=== PATIENT | male | born 1955 | race Caucasian/White ===

== ENCOUNTER → 2017-07-10 | Outpatient (CLI) | payer OTHER | LOC: SLP 20:21 | PROVIDERS: ATTEND Internal Medicine Cardiovascular Disease | DX: G47.30 Sleep apnea, unspecified (principal); I10 Essential (primary) hypertension | CPT/HCPCS: 95810 ==

== ENCOUNTER → 2017-09-10 | Outpatient (CLI) | payer OTHER | END | disposition home or self-care (01) | LOC: SLP 20:32 | PROVIDERS: ATTEND Internal Medicine Cardiovascular Disease | DX: G47.33 Obstructive sleep apnea (adult) (pediatric) (principal); I10 Essential (primary) hypertension; E66.9 Obesity, unspecified; F32.9 Major depressive disorder, single episode, unspecified | CPT/HCPCS: 95811 ==